=== PATIENT | female | born 1955 | race Hispanic/Latino ===

== ENCOUNTER 2022-02-05 08:45 | Day surgery (SDC) | payer OTHER ==
[2022-02-01 12:10] VITALS: BP 139/71
[2022-02-01 12:26] LABS: BASOPHILS % (AUTO) 0.6 % (0.0-5.0); EOSINOPHILS % (AUTO) 2.4 % (0.0-8.0); HEMATOCRIT 41.4 % (36-48); LYMPHOCYTES % (AUTO) 25.5 % (21.0-51.0); MEAN CORPUSCULAR HEMOGLOBIN 29.5 pg (27.0-33.0); MEAN CORPUSCULAR HGB CONC 32.9 g/dL (32.0-36.0); MEAN CORPUSCULAR VOLUME 89.8 fL (79-99); MONOCYTES % (AUTO) 9.2 % (3.0-13.0); NEUTROPHILS % (AUTO) 62.2 % (40.0-77.0); PLATELET COUNT (AUTO) 305 K/uL (130-400); RED BLOOD CELL COUNT(AUTO) 4.61 MIL/uL (4.00-5.50); RED CELL DISTRIBUTION WIDTH 12.4 % (11.0-15.5)
[2022-02-01 12:35] LABS: CREATININE 0.7 mg/dL (0.5-1.5); POTASSIUM 4.3 mmol/L (3.5-5.1)
[2022-02-01 12:36] LABS: INR 1.06 (0.85-1.15); PROTHROMBIN TIME 11.5 SEC (9.6-11.6)
[2022-02-01 12:37] LABS: PARTIAL THROMBOPLASTIN TIME 28.8 SEC (26.3-35.5)
[2022-02-01 12:56] LABS: B-TYPE NATRIURETIC PEPTIDE 25 pg/mL (0-100)
[2022-02-01 13:01] LABS: APPEARANCE,URINE Clear (CLEAR); BILIRUBIN,URINE Negative (NEGATIVE); COLOR,URINE Yellow (YELLOW); GLUCOSE, URINE (UA) Negative (NEGATIVE); KETONES,URINE Negative (NEGATIVE); LEUKOCYTE ESTERASE ,URINE Negative (NEGATIVE); NITRATE,URINE Negative (NEGATIVE); OCCULT BLOOD,URINE Negative (NEGATIVE); PROTEIN,URINE Negative (NEGATIVE); UROBILINOGEN,URINE 0.2 mg/dL (0.2-1.0)
[~2022-02-05] VITALS: Ht 147.3 cm; Wt 58.8 kg
[2022-02-05] VITALS (10 sets, daily range): BP systolic 114–158; BP diastolic 60–81
[~2022-02-05 08:45] MED LIST: AEC81 PO; ATOR40TA71 PO; CARV6.25 PO; CHOL500062 PO; LORA10TA7 PO; METF-444 PO; MONT-39 PO; OMEG-148 PO; OMEP40CA21 PO; SITA100T12 PO; SPIR25TA6 PO
[2022-02-05 09:26] LABS: CREATININE 0.7 mg/dL (0.5-1.5); POTASSIUM 4.2 mmol/L (3.5-5.1)
[2022-02-05] MEDS ORDERED: 0.9%NACL 1000ML 1,000 ML IV ONE (09:43)
[2022-02-05] MEDS ORDERED: NITROGLYCERIN 50MG VIAL ONE (12:50)
[2022-02-05] MEDS ORDERED: FENTANYL CITRATE PF 50 MCG/1 ML 2ML VIAL ONE (12:50)
[2022-02-05] MEDS ORDERED: IOHEXOL 350 MG/ML 100ML INFUS..BTL IV ONE (12:50)
[2022-02-05] MEDS ORDERED: MIDAZOLAM HCL 1 MG/ML 2ML VIAL ONE (12:50)
[2022-02-05] MEDS ORDERED: IOHEXOL-350 50ML VIAL IV ONE ×2 (12:50→14:10)
[2022-02-05] MEDS ORDERED: LIDOCAINE HCL 1% MDV 50ML VIAL ONE (12:51)
[2022-02-05] MEDS ORDERED: BIVALIRUDIN 250 MG/VIAL IV ONE (14:04)
[2022-02-05] MEDS ORDERED: 0.9%NACL 1000ML 1,000 ML IV SCH (14:30)
== END 2022-02-05 18:50 | disposition home or self-care (01) ==
LOC: DAH 08:45
PROVIDERS: ATTEND Internal Medicine Cardiovascular Disease
DX: I25.10 Atherosclerotic heart disease of native coronary artery without angina pectoris (principal); Z20.822 Contact with and (suspected) exposure to COVID-19; I42.0 Dilated cardiomyopathy; I50.22 Chronic systolic (congestive) heart failure; E11.9 Type 2 diabetes mellitus without complications; E78.5 Hyperlipidemia, unspecified; Z79.82 Long term (current) use of aspirin; Z79.01 Long term (current) use of anticoagulants; Z79.899 Other long term (current) drug therapy; Z98.890 Other specified postprocedural states; Z90.49 Acquired absence of other specified parts of digestive tract; Z82.49 Family history of ischemic heart disease and other diseases of the circulatory system
CPT/HCPCS: 36415 ×2; 71045; 80048 ×2; 81003; 82728; 82948 ×2; 83540; 83880; 85025; 85610; 85730; 86701; 87390; 87635; 93005; 93458; C1760; C1894 ×2; J1644; J2250; J3010; J3490 ×2; J7030; Q9965; Q9967 ×3; 99156; 99157; J0583